=== PATIENT | female | born 2000 | race Caucasian/White ===

== ENCOUNTER → 2022-06-16 | Outpatient (CLI) | payer OTHER | LOC: M RAD 10:59 | PROVIDERS: ATTEND Nurse Practitioner Women's Health | DX: Z36.89 Encounter for other specified antenatal screening (principal); Z3A.19 19 weeks gestation of pregnancy ==

== ENCOUNTER 2022-10-23 07:30 | Inpatient (IN) | payer OTHER ==
[~2022-10-23] VITALS: Ht 157.5 cm; Wt 103.2 kg
[2022-10-23] VITALS (22 sets, daily range): BP systolic 118–161; BP diastolic 56–108; O2SAT 96–100
[2022-10-23] MEDS ORDERED: HOME MED LIST COMPLETE! XX SCH (07:50)
[2022-10-23] MEDS ORDERED: ZOLO50TA PO (07:50)
[2022-10-23] MEDS ORDERED: UNIS25TA3 PO (07:50)
[2022-10-23] MEDS ORDERED: PRENTAB9 PO (07:50)
[2022-10-23] MEDS ORDERED: LACTATED RINGER'S 1000 ML IV STA (08:52)
[2022-10-23] MEDS ORDERED: TRANEXAMIC ACID INJection 1,000 MG in NS 100 ML IV PRN (08:55)
[2022-10-23] MEDS ORDERED: AZITHROMYCIN INJ 500 MG, VIAL MATE ADAPTER 1 EACH in NS 250 ML IV ONE (08:55)
[2022-10-23] MEDS ORDERED: METHYLERGONOVINE MALEATE 0.2MG/ML 1ML VIAL IM PRN ×2 (08:55→12:35)
[2022-10-23] MEDS: LR 1,000 ML IV SCH ×4 (08:55→23:35)
[2022-10-23] MEDS ORDERED: ceFAZolin SOD 2 GM in IV 1 EA IV ONE (08:55)
[2022-10-23] MEDS ORDERED: BICITRA 30ML SOLN UDC PO ONE (08:55)
[2022-10-23] MEDS ORDERED: OXYTOCIN DRIP 30 UNITS in IV 1 EA IV PRN ×4 (08:55)
[2022-10-23] MEDS: PRENATAL VITAMINS CHEWABLE TABLET PO SCH (09:00)
[2022-10-23 09:22] LABS: HEMATOCRIT 33.9 % (36.0-47.0); HEMOGLOBIN 11.3 g/dl (12.0-15.5); MEAN CORPUSCULAR HEMOGLOBIN 31.7 pg (27.0-33.0); MEAN CORPUSCULAR HGB CONC 33.3 g/dl (32.0-36.5); PLATELET COUNT, AUTOMATED 234 10^3/uL (150-450); RED BLOOD COUNT 3.57 10^6/uL (4.00-5.40); WHITE BLOOD COUNT 9.5 10^3/uL (4.0-10.0)
[2022-10-23] MEDS ORDERED: MORPHINE PRES-FREE INJ 10 MG/10 ML VIAL As Ordered ONE (09:43)
[2022-10-23] MEDS ORDERED: KETOROLAC 60MG 2ML VIAL As Ordered ONE (09:43)
[2022-10-23] MEDS ORDERED: ACETAMINOPHEN 1000MG 100ML IV BAG As Ordered ONE (09:43)
[2022-10-23] MEDS ORDERED: OXYTOCIN INJ 10UNITS/ML 1ML VIAL As Ordered ONE (09:43)
[2022-10-23] MEDS ORDERED: ONDANSETRON 4MG 2ML VIAL As Ordered ONE (09:43)
[2022-10-23 10:51] LABS: CORD GAS ABE V -2.2; CORD GAS HCO3 V 23.1 MMOL/L; CORD GAS PCO2 V 41.9 mmHg; CORD GAS PH V 7.36 UNITS; CORD GAS PO2 V 29.4 mmHg; CORD GAS SBC V 21.9 MMOL/L; CORD GAS TCO2 V 24.4 MMOL/L
[2022-10-23 10:53] LABS: CORD GAS ABE A -5.8; CORD GAS HCO3 A 22.6 MMOL/L; CORD GAS O2 SAT A 56.9 %; CORD GAS PCO2 A 55.2 mmHg; CORD GAS PH A 7.23 UNITS; CORD GAS PO2 A 26.2 mmHg; CORD GAS SBC A 18.8 MMOL/L; CORD GAS TCO2 A 24.3 MMOL/L
[2022-10-23] MEDS ORDERED: fentaNYL 100 MCG/2 ML INJECTION As Ordered ONE ×2 (11:12→11:51)
[2022-10-23] MEDS ORDERED: MIDAZOLAM INJ 2MG/2ML VIAL As Ordered ONE (11:30)
[2022-10-23] MEDS ORDERED: KETAMINE HCL 200MG/20ML VIAL As Ordered ONE (11:56)
[2022-10-23] MEDS ORDERED: LABETALOL 100MG/20ML VIAL As Ordered ONE (12:29)
[2022-10-23] MEDS ORDERED: ONDANSETRON 4MG 2ML VIAL IV PRN ×2 (12:35→12:50)
[2022-10-23] MEDS ORDERED: SIMETHICONE 80MG CHEW TAB PO PRN (12:35)
[2022-10-23] MEDS ORDERED: oxyCODONE 5MG TAB PO PRN ×3 (12:35→12:50)
[2022-10-23] MEDS ORDERED: METOCLOPRAMIDE INJ 10MG/2ML VIAL IV PRN ×2 (12:35→12:50)
[2022-10-23] MEDS ORDERED: OXYTOCIN DRIP 30 UNITS in IV 1 EA IV SCH (12:35)
[2022-10-23] MEDS ORDERED: RHOGAM 300MCG (1500IU) INJ IM SCH (12:35)
[2022-10-23] MEDS ORDERED: NALOXONE INJ 0.4MG/1ML VIAL IV PRN ×2 (12:50)
[2022-10-23] MEDS: SLF 3 ML SYR IV SCH ×2 (12:50→20:50)
[2022-10-23] MEDS ORDERED: HYDROMORPHONE HCL 0.5 MG/ 0.5 ML SYRINGE IV PRN (12:50)
[2022-10-23] MEDS ORDERED: fentaNYL 100 MCG/2 ML INJECTION IV PRN (12:50)
[2022-10-23] MEDS ORDERED: diphenhydrAMINE 50MG/ML VIAL IV PRN (12:50)
[2022-10-23] MEDS ORDERED: **NOTE PATIENT COMMENT** MISC XX SCH (12:50)
[2022-10-23] MEDS ORDERED: MEPERIDINE 25 MG/ML 1ML VIAL IV PRN (12:50)
[2022-10-23] MEDS ORDERED: OXYTOCIN 30UNITS IN 0.9% NaCl 500ML IV BAG As Ordered ONE (13:00)
[2022-10-23] MEDS: KETOROLAC 30 MG/ML 1ML VIAL IV SCH ×2 (17:46→23:35)
[2022-10-23] MEDS: ACETAMINOPHEN 500 MG TAB PO SCH (17:47)
[2022-10-24] VITALS (7 sets, daily range): BP systolic 113–137; BP diastolic 57–77; TEMP 97.8; O2SAT 96–99
[2022-10-24] MEDS: LR 1,000 ML IV SCH (00:31)
[2022-10-24] MEDS: ACETAMINOPHEN 500 MG TAB PO SCH ×5 (00:31→23:28)
[2022-10-24] MEDS: KETOROLAC 30 MG/ML 1ML VIAL IV SCH (05:19)
[2022-10-24] MEDS: SLF 3 ML SYR IV SCH (05:19)
[2022-10-24 06:22] LABS: HEMATOCRIT 29.4 % (36.0-47.0); HEMOGLOBIN 9.6 g/dl (12.0-15.5); MEAN CORPUSCULAR HGB CONC 32.7 g/dl (32.0-36.5); PLATELET COUNT, AUTOMATED 229 10^3/uL (150-450); WHITE BLOOD COUNT 15.8 10^3/uL (4.0-10.0)
[2022-10-24] MEDS ORDERED: SERTRALINE HCL 50 MG TAB PO SCH ×2 (09:00→21:00)
[2022-10-24] MEDS: PRENATAL VITAMINS CHEWABLE TABLET PO SCH (09:00)
[2022-10-24] MEDS: IBUPROFEN 800 MG TAB PO SCH ×2 (12:32→21:10)
[2022-10-25 02:00] VITALS: BP 139/78; O2SAT 96
[2022-10-25] MEDS: IBUPROFEN 800 MG TAB PO SCH (05:02)
[2022-10-25 05:51] VITALS: BP 128/66; O2SAT 98
[2022-10-25] MEDS: ACETAMINOPHEN 500 MG TAB PO SCH ×2 (05:51→12:16)
[2022-10-25] MEDS ORDERED: ACET-683 PO (07:35)
[2022-10-25] MEDS ORDERED: OXYC-517 PO (07:35)
[2022-10-25] MEDS ORDERED: IBUP80TA PO (07:35)
[2022-10-25] MEDS ORDERED: MIRA3350 PO (07:36)
[2022-10-25] MEDS: PRENATAL VITAMINS CHEWABLE TABLET PO SCH (08:45)
[2022-10-25] MEDS ORDERED: MEASLES,MUMPS,RUBELLA VACCINE INJ (MMR-II) SC.IMMUN ONE (09:00)
[2022-10-25 10:00] VITALS: BP 135/89; O2SAT 98
== END 2022-10-25 12:19 | disposition home or self-care (01) | DRG 773 ==
LOC: M LDO 07:30 → M LDI 08:46 → M OBS 13:21
PROVIDERS: ADMIT Advanced Practice Midwife; ATTEND Obstetrics & Gynecology
PROC: 10D00Z1 Extraction of Products of Conception, Low, Open Approach (ICD-10-PCS; principal; 2022-10-23 08:48)
DX: O34.211 Maternal care for low transverse scar from previous cesarean delivery (principal); Z3A.37 37 weeks gestation of pregnancy; Z37.0 Single live birth; O75.82 Onset (spontaneous) of labor after 37 completed weeks of gestation but before 39 completed weeks gestation, with delivery by (planned) cesarean section